=== PATIENT | female | born 1990 | race Two or more races ===

== ENCOUNTER 2016-11-29 02:56 | Emergency (ER) | payer OTHER ==
[~2016-11-29] VITALS: Ht 162.6 cm; Wt 67.8 kg
[~2016-11-29 02:56] MED LIST: ABILIFY10 MG PO; ACETAMINOPHEN-1 EAC1 PO; ACYCLOVIR400 MG PO; BACTRIM,SEPT1 TABLET PO; DEPO-PROVER150 MG/ML IM; DHA100 MG PO; ENDOCET 5-3251 EACH PO; IBUPROFEN800 MG PO; Motrin PO; NAPROSYN500 MG PO; NOHOMEMEDS; NORCO 5/3251 TABLET PO; NORCO 7.5/321 TABLET PO; ORTHO TRI-CYCL1 EACH PO; Ortho Tri-Cyclen 28, PO; PRENATAL PLUS1 EAC3 PO; PRENATAL TABLE1 EAC3 PO; PRENATAL1 EACH PO; SEROQUEL12.5 MG PO; SPRINTEC1 EACH PO; SULFACETAMIDE S15 ML RIGHT EYE; TRAMADOL HCL50 MG PO; ULTRACET1 TABLET PO; VALIUM5 MG PO; VALTREX1000 MG PO; VALTREX50 MG/ML PO; VICODIN,LORT1 TABLET PO
[2016-11-29 03:00] VITALS: BP 112/78
[2016-11-29] MEDS ORDERED: CLARITIN10 M3 PO (03:47)
[2016-11-29] MEDS ORDERED: FLOXIN OTIC SOLN5 ML BOTH EARS (03:49)
== END 2016-11-29 04:22 | disposition home or self-care (01) ==
LOC: EXP 02:56 → EME 02:56 → EXP 04:22
DX: J30.9 Allergic rhinitis, unspecified (principal); H60.92 Unspecified otitis externa, left ear; F17.200 Nicotine dependence, unspecified, uncomplicated
CPT/HCPCS: 99281; 99283; J1100

== ENCOUNTER 2016-12-10 22:13 | Emergency (ER) | payer OTHER ==
[~2016-12-10] VITALS: Ht 162.6 cm; Wt 69.5 kg
[~2016-12-10 22:13] MED LIST changes: +CLARITIN10 M3 PO; +FLOXIN OTIC SOLN5 ML BOTH EARS
[2016-12-10 22:15] VITALS: BP 151/112
== END 2016-12-10 23:30 | disposition left against medical advice (07) ==
LOC: EME 22:13
DX: R07.9 Chest pain, unspecified (principal); Z53.21 Procedure and treatment not carried out due to patient leaving prior to being seen by health care provider
CPT/HCPCS: 80048; 84484; 84702; 85027; 93005

== ENCOUNTER 2016-12-19 22:04 | Emergency (ER) | payer OTHER ==
[~2016-12-19] VITALS: Ht 162.6 cm; Wt 71.3 kg
[2016-12-19 23:57] LABS: HEMATOCRIT 35.3 % (36.0-46.0); MCH 29.6 PG (29.0-34.0); MCHC 32.6 G/DL (30.0-36.0); MEAN PLAT.VOLUME 10.7 uM^3 (9.5-12.4); PLATELET COUNT 331 K/uL (156-360); RBC DIS.WIDTH-CV 12.3 % (11.8-14.6); RBC DIS.WIDTH-SD 40.6 % (39-53); RED BLOOD COUNT 3.88 M/uL (3.80-5.20); WHITE BLOOD COUNT 10.3 K/uL (4.1-10.2)
[2016-12-20] MEDS ORDERED: NAPROSYN500 MG PO (00:38)
[2016-12-20 00:47] VITALS: BP 122/84
== END 2016-12-20 00:47 | disposition home or self-care (01) ==
LOC: EME 22:04
PROVIDERS: Emergency Medicine
DX: M94.0 Chondrocostal junction syndrome [Tietze] (principal); F17.200 Nicotine dependence, unspecified, uncomplicated
CPT/HCPCS: 71020; 83880; 84702; 85027; 99281; 99283; J1885

== ENCOUNTER 2017-03-19 09:09 | Inpatient (IN) | payer OTHER ==
[~2017-03-19] VITALS: Ht 162.6 cm; Wt 65.0 kg
[2017-03-19 12:22] LABS: HEMATOCRIT 36.9 % (36.0-46.0); MCH 27.4 PG (29.0-34.0); MCHC 31.7 G/DL (30.0-36.0); MCV 86.4 FL (83-99); MEAN PLAT.VOLUME 10.8 uM^3 (9.5-12.4); PLATELET COUNT 293 K/uL (156-360); RBC DIS.WIDTH-CV 13.8 % (11.8-14.6); RBC DIS.WIDTH-SD 42.8 % (39-53); RED BLOOD COUNT 4.27 M/uL (3.80-5.20); WHITE BLOOD COUNT 7.1 K/uL (4.1-10.2)
[2017-03-19 12:32] LABS: CHLORIDE 107 mEq/L (99-109); SODIUM 138 mEq/L (136-147)
[2017-03-19 12:34] LABS: GLUCOSE 127 mg/dL (70-99)
[2017-03-19 12:35] LABS: ANION GAP 10 MEQ/L (2-14)
[2017-03-19 12:37] LABS: SERUM ETHYL ALCOHOL < 10 mg/dL
[2017-03-19 12:38] LABS: GFR ESTIMATE (CALCULATED) > 59 mL/min/
[2017-03-19 12:39] LABS: UREA NITROGEN (BUN) 16 mg/dL (9-23)
[2017-03-19 12:46] LABS: QUANTITATIVE HCG < 4.0 MIU/ML
[2017-03-19 13:01] LABS: ADD MIUA? YES; BILIRUBIN NEGATIVE; BLOOD SMALL; COLOR YELLOW ((YELLOW)); GLUCOSE (STRIP) NEGATIVE; KETONES NEGATIVE; LEUKOCYTES NEGATIVE; NITRITE NEGATIVE; PROTEIN (STRIP) NEGATIVE; SPECIFIC GRAVITY 1.018 (1.000-1.030); UROBILINOGEN 0.2 MG/DL (0.2-1.0)
[2017-03-19 13:04] LABS: UCUL ADDED? NO
[2017-03-19 13:07] LABS: INTERNAL CONTROL VALID? YES
[2017-03-19 13:13] LABS: AMPHETAMINE NEGATIVE (500 ng/mL); BARBITURATES NEGATIVE (200 ng/mL); BENZODIAZEPINES NEGATIVE (150 ng/mL); COCAINE PRESUMPTIVE POSITIVE (150 ng/mL); INTERNAL CONTROLS VALID? YES; METHADONE NEGATIVE (200 ng/mL); METHAMPHETAMINE NEGATIVE (500 ng/mL); OPIATES (MORPHINE) NEGATIVE (100 ng/mL); OXYCODONE NEGATIVE (100 ng/mL); PHENCYCLIDINE NEGATIVE (25 ng/mL); PROPOXYPHENE NEGATIVE (300 ng/mL); THC CANNABINOIDS PRESUMPTIVE POSITIVE (50 ng/mL); TRICYCLIC ANTIDEPRESSANTS NEGATIVE (300 ng/mL)
[2017-03-19 13:30] VITALS: BP 105/58
[2017-03-19 15:39] VITALS: BP 110/53
[2017-03-20 07:43] VITALS: BP 123/71
[2017-03-20 14:59] VITALS: BP 113/59
[2017-03-21 07:40] VITALS: BP 119/74
[2017-03-21] MEDS ORDERED: CITALOPRAM HBR10 MG PO (09:24)
[2017-03-21] MEDS ORDERED: DIVALPROEX SOD250 MG PO (09:24)
== END 2017-03-21 11:30 | disposition home or self-care (01) | DRG 885 ==
LOC: EME 09:09 → 1WEST 12:48 → EDOF 12:48 → 1WEST 13:01
PROVIDERS: Emergency Medicine
DX: F31.9 Bipolar disorder, unspecified (principal); Z91.19 Patient's noncompliance with other medical treatment and regimen; R45.851 Suicidal ideations; F41.1 Generalized anxiety disorder; F11.90 Opioid use, unspecified, uncomplicated; F12.90 Cannabis use, unspecified, uncomplicated
CPT/HCPCS: 80048; 81003; 84702; 84703; 85027; 90839; 99281; 99283; G0480; Q0177

== ENCOUNTER 2017-11-11 07:09 | Emergency (ER) | payer OTHER ==
[~2017-11-11] VITALS: Ht 162.6 cm; Wt 69.8 kg
[~2017-11-11 07:09] MED LIST changes: +CITALOPRAM HBR10 MG PO; +DIVALPROEX SOD250 MG PO
[2017-11-11 09:04] VITALS: BP 102/57
== END 2017-11-11 09:05 | disposition home or self-care (01) ==
LOC: EME 07:09
DX: R51 Headache (principal); A60.00 Herpesviral infection of urogenital system, unspecified; Z87.891 Personal history of nicotine dependence
CPT/HCPCS: 70450; 99281; 99284